=== PATIENT | male | born 1960 | race Caucasian/White ===

== ENCOUNTER 2017-02-02 13:36 | Emergency (ER) | payer MEDICARE ==
[2017-02-02 14:14] LABS: BASO % 0.5 % (0.2-1.2); EOS # 0.5 10_X3_uL (0.0-0.5); EOS % 5.9 % (0.8-7.0); GRAN # 4.3 10_X3_uL (1.8-5.4); GRAN % 53.7 % (34.0-67.9); LYMPH # 2.3 10_X3_uL (1.3-3.6); LYMPH % 28.6 % (21.8-53.1); MEAN CORPUSCULAR HEMOGLOBIN 30.1 pg (27.0-33.0); MEAN CORPUSCULAR HGB CONC 32.6 g/dL (32.0-36.0); MEAN CORPUSCULAR VOLUME 92.5 fL (79-92); MEAN PLATELET VOLUME 9.7 fl (7.5-11.5); MONO # 0.9 10_X3_uL (0.3-0.8); MONO % 11.3 % (5.3-12.2); PLATELET COUNT 222 x10_3/uL (163-337); RED BLOOD COUNT 4.65 x10_6/uL (4.6-6.1); RED CELL DISTRIBUTION WIDTH 13.5 % (11.6-14.4); WHITE BLOOD COUNT 7.9 x10_3/uL (4.2-9.1)
== END 2017-02-02 17:33 | disposition home or self-care (01) ==
LOC: ER 13:36
PROVIDERS: General Practice
DX: M54.5 Low back pain (principal); M79.604 Pain in right leg; G62.9 Polyneuropathy, unspecified; M51.36 Other intervertebral disc degeneration, lumbar region; F17.210 Nicotine dependence, cigarettes, uncomplicated; Z98.890 Other specified postprocedural states; Z79.891 Long term (current) use of opiate analgesic; Z79.899 Other long term (current) drug therapy
CPT/HCPCS: 36415; 72128; 72131; 73590; 85025; 96372; 99283; 99284-25; J1170